=== PATIENT | male | born 1960 | race Caucasian/White ===

== ENCOUNTER 2017-01-27 19:23 | Emergency (ER) | payer MEDICAID ==
[2017-01-27 20:03] VITALS: BMI 29.7
[2017-01-27 20:06] VITALS: BP 122/72; PULSE 82; RESP 19; TEMP 98.2; O2SAT 96
[2017-01-27] MEDS ORDERED: Lidocaine 5% Patch TD STA (20:41)
--- NOTE | 2017-01-27 20:45 | ED PDOC ---
Arrival/HPI - General Chief Complaint: Back Pain Time Seen by Provider: 01/27/17 20:41 Historian: Patient - History of Present Illness Narrative History of Present Illness (Text): 01/27/17 20:42 56 y/o male, no significant pmh, nkda, c/o rt. lower back pain s/p lifting heavy object with no fall or trauma. Aching pain, pain from the rt. lower back to the rt. thigh region, no numbness or tingling, no urinary or bowel incontinence or retention, no rash, no urinary symptoms, no dizziness, no other medical or psychological complaints. Past Medical History - Provider Review Nursing Documentation Reviewed: Yes - Infectious Disease Hx of Infectious Diseases: None - Psychiatric Hx Substance Use: No - Anesthesia Hx Anesthesia: No Family/Social History - Physician Review Nursing Documentation Reviewed: Yes Family/Social History: Unknown Family HX Smoking Status: Heavy Smoker > 10 Cigarettes Daily Hx Alcohol Use: No Hx Substance Use: No Allergies/Home Meds Allergies/Adverse Reactions: Allergies No Known Allergies Allergy (Verified 01/27/17 20:03) Home Medications: Home Meds Medication Instructions Recorded Confirmed DULoxetine [Cymbalta] 60 mg PO DAILY 01/27/17 01/27/17 Review of Systems - Review of Systems Constitutional: absent: Fatigue, Fevers Eyes: absent: Vision Changes ENT: absent: Hearing Changes Respiratory: absent: SOB, Cough Cardiovascular: absent: Chest Pain Gastrointestinal: absent: Abdominal Pain, Nausea, Vomiting Genitourinary Male: absent: Dysuria, Frequency, Hematuria, Urinary Output Changes Musculoskeletal: Back Pain. absent: Arthralgias, Neck Pain, Joint Swelling, Myalgias Skin: absent: Rash, Pruritis, Skin Lesions, Laceration, Abscess, Ulcer, Cellulitis Neurological: absent: Headache, Dizziness Physical Exam Vital Signs Reviewed: Yes Vital Signs Temp Pulse Resp BP Pulse Ox 01/27/17 20:05 98.2 F 82 19 122/72 96 Temperature: Afebrile Blood Pressure: Normal Pulse: Regular Respiratory Rate: Normal Appearance: Positive for: Well-Appearing, Non-Toxic, Comfortable Pain Distress: Moderate Mental Status: Positive for: Alert and Oriented X 3 - Systems Exam Head: Present: Atraumatic, Normocephalic Pupils: Present: PERRL Extroacular Muscles: Present: EOMI Conjunctiva: Present: Normal Mouth: Present: Moist Mucous Membranes Neck: Present: Normal Range of Motion Respiratory/Chest: Present: Clear to Auscultation, Good Air Exchange. No: Respiratory Distress, Accessory Muscle Use Cardiovascular: Present: Regular Rate and Rhythm, Normal S1, S2. No: Murmurs Abdomen: Present: Normal Bowel Sounds. No: Tenderness, Distention, Peritoneal Signs Back: Present: Normal Inspection, Paraspinal Tenderness, Other (LS spine: +ttp on the rt. paraspinal muscle region with no midline tenderness or step off, FROM without limitation, no rash, sensation intact, motor 5/5, no saddling gait. ). No: CVA Tenderness, Midline Tenderness, Pain with Leg Raise, Decubitus Ulcer Upper Extremity: Present: Normal Inspection. No: Cyanosis, Edema Lower Extremity: Present: Normal Inspection, Capillary Refill < 2 s. No: Edema Neurological: Present: GCS=15, Speech Normal, Motor Func Grossly Intact, Gait Normal, Memory Normal Skin: Present: Warm, Dry, Normal Color. No: Rashes Psychiatric: Present: Alert, Oriented x 3, Normal Insight, Normal Concentration Medical Decision Making ED Course and Treatment: 01/27/17 20:44 -toradol IM and lidoderm -Discharge home with motrin, flexeril, lidoderm patch, heat compression, follow up with your own pmd within 2 days, return to the ER for any new or worsening signs or symptoms. - PA / CH[employer]ING [employer] OPERATOR / Resident Statement MD/DO has reviewed & agrees with the documentation as recorded. Disposition/Present on Arrival - Present on Arrival Any Indicators Present on Arrival: No History of DVT/PE: No History of Uncontrolled Diabetes: No Urinary Catheter: No History of Decub. Ulcer: No History Surgical Site Infection Following: None - Disposition Have Diagnosis and Disposition been Completed?: Yes Diagnosis: Back pain, Back strain Disposition: HOME/ ROUTINE Disposition Time: 20:45 Patient Plan: Discharge Condition: GOOD Additional Instructions: Discharge home with motrin, flexeril, lidoderm patch, heat compression, follow up with your own pmd within 2 days, return to the ER for any new or worsening signs or symptoms. Prescriptions: Cyclobenzaprine [Cyclobenzaprine HCl] 10 mg PO TID PRN #21 tab PRN Reason: Other Ibuprofen [Motrin] 600 mg PO QID PRN #24 tab PRN Reason: Other Lidocaine 5% [Lidoderm] 1 patch TOP DAILY PRN #10 patch PRN Reason: Other Referrals: Mariangel Jaquez MD [Primary Care Provider] - Follow up with primary Forms: WORK NOTE
== END 2017-01-27 21:00 | disposition home or self-care (01) ==
LOC: ED 19:23
DX: S39.012A Strain of muscle, fascia and tendon of lower back, initial encounter (principal); X50.0XXA Overexertion from strenuous movement or load, initial encounter; M54.5 Low back pain
CPT/HCPCS: 96372; 99283; J1885

== ENCOUNTER 2017-05-23 21:17 | Emergency (ER) | payer MEDICAID ==
[2017-05-23 21:36] VITALS: TEMP 98.2
[2017-05-23 21:43] VITALS: BMI 25.0
--- NOTE | 2017-05-23 21:46 | ED PDOC ---
Arrival/HPI - General Time Seen by Provider: 05/23/17 21:26 Historian: Patient - History of Present Illness Narrative History of Present Illness (Text): 05/23/17 21:46 Ana Maria Dutton is a 56 year old male who presents to the emergency department complaining of lower back pain radiating to his lower abdomen for the past 2 weeks. Patient states pain is worse when sitting or bending, but not present when lying down. Patient denies fever, chills, chest pain, shortness of breath, nausea, vomiting, diarrhea, neck pain, headache, dizziness, or any other complaints. Time/Duration: < month (2 weeks) Symptom Onset: Gradual Symptom Course: Unchanged Activities at Onset: Light Context: Home Past Medical History - Provider Review Nursing Documentation Reviewed: Yes - Infectious Disease Hx of Infectious Diseases: None - Psychiatric Hx Substance Use: No - Anesthesia Hx Anesthesia: No Family/Social History - Physician Review Nursing Documentation Reviewed: Yes Family/Social History: Unknown Family HX Smoking Status: Heavy Smoker > 10 Cigarettes Daily Hx Alcohol Use: No Hx Substance Use: No Allergies/Home Meds Allergies/Adverse Reactions: Allergies No Known Allergies Allergy (Verified 05/23/17 21:42) Home Medications: Home Meds Medication Instructions Recorded Confirmed DULoxetine [Cymbalta] 60 mg PO DAILY 01/27/17 05/23/17 Alprazolam [Xanax] 0.25 mg PO DAILY 05/23/17 05/23/17 Review of Systems - Physician Review All systems were reviewed & negative as marked: Yes - Review of Systems Constitutional: Normal. absent: Fevers Eyes: Normal ENT: Normal Respiratory: Normal. absent: SOB, Cough Cardiovascular: Normal. absent: Chest Pain Gastrointestinal: Abdominal Pain Genitourinary Male: Normal. absent: Dysuria, Frequency, Hematuria, Urinary Output Changes Musculoskeletal: Back Pain. absent: Neck Pain Skin: Normal Neurological: Normal. absent: Headache, Dizziness Endocrine: Normal Hemo/Lymphatic: Normal Psychiatric: Normal Physical Exam Vital Signs Reviewed: Yes Vital Signs Temp Pulse Resp BP Pulse Ox 05/24/17 01:14 18 99 05/23/17 23:55 79 19 99 05/23/17 21:44 75 17 126/77 98 05/23/17 21:35 98.2 F 75 18 126/75 100 Temperature: Afebrile Blood Pressure: Normal Pulse: Regular Respiratory Rate: Normal Appearance: Positive for: Well-Appearing, Non-Toxic, Comfortable Pain Distress: None Mental Status: Positive for: Alert and Oriented X 3 - Systems Exam Head: Present: Atraumatic, Normocephalic Pupils: Present: PERRL Extroacular Muscles: Present: EOMI Conjunctiva: Present: Normal Mouth: Present: Moist Mucous Membranes Neck: Present: Normal Range of Motion Respiratory/Chest: Present: Clear to Auscultation, Good Air Exchange. No: Respiratory Distress, Accessory Muscle Use Cardiovascular: Present: Regular Rate and Rhythm, Normal S1, S2. No: Murmurs Abdomen: Present: Normal Bowel Sounds. No: Tenderness, Distention, Peritoneal Signs Back: Present: Normal Inspection Upper Extremity: Present: Normal Inspection. No: Cyanosis, Edema Lower Extremity: Present: Normal Inspection. No: Edema Neurological: Present: GCS=15, CN II-XII Intact, Speech Normal Skin: Present: Warm, Dry, Normal Color. No: Rashes Psychiatric: Present: Alert, Oriented x 3, Normal Insight, Normal Concentration Medical Decision Making ED Course and Treatment: 05/23/17 21:46 Impression: 56 year old male complaining of lower back pain radiating to abdomen for 2 weeks. Plan: -- CT Abdomen and Pelvis w/o contrast -- EKG -- Labs, cardiac enzymes, lipase, amylase -- UA -- Reassess and disposition Prior Visits: Notes and results from previous visits were reviewed. On 01/27/2017, pt was seen in the Emergency department for right lower back pain radiating to right thigh. Pt was d/c home. Progress Notes: Reviewed EKG, NSR at [address]-segment elevations or depressions, no T-wave inversions, normal intervals. 05/24/17 00:35 Reviewed radiology, CT Abdomen and Pelvis shows: Lower thorax: Bibasilar atelectasis. ABDOMEN: Liver: No acute findings Gallbladder and bile ducts: The gallbladder is decompressed, without calcified stones. No intraextrahepatic biliary ductal dilation. Pancreas: Limited evaluation secondary to the lack of intravenous contrast. Spleen: No acute findings. Adrenals: No acute findings. Kidneys and ureters: No obstructing stones. No hydronephrosis. PELVIS: Bladder: No acute findings. Reproductive: No acute findings. Appendix: The appendix is of normal caliber (series 2, image 117). ABDOMEN and PELVIS: Stomach and bowel: Mural thickening within multiple loops of nondilated small bowel, to the left of midline within the lower abdomen without surrounding inflammation or fluid to confirm an acute enteritis. Peritoneum: No acute findings. Lymph nodes: Limited evaluation without intravenous contrast. Vasculature: No aortic aneurysm. Calcified atherosclerotic disease. Bones: No acute fracture. IMPRESSION: No obstructive uropathy. Small bowel mural thickening without surrounding inflammation or fluid to confirm an acute enteritis 05/24/17 01:14 On reevaluation the patient feels better and is in no acute distress. I have discussed the results and plan with the patient, who expresses understanding. Patient given the opportunity to ask question, all questions were answered and there is agreement with the plan to discharge the patient home. Patient is stable for discharge. Patient was instructed to follow up with physician/clinic in 1-2 days or return if symptoms persist/worsen or new concerning symptoms arise. - Lab Interpretations Lab Results: 05/23/17 22:18 05/23/17 22:18 Lab Results 05/23/17 22:50: Urine Color Yellow, Urine Appearance Clear, Urine pH 6.0, Ur Specific [place] 1.020, Urine Protein Negative, Urine Glucose (UA) Negative, Urine Ketones Negative, Urine Blood Negative, Urine Nitrate Negative, Urine Bilirubin Negative, Urine Urobilinogen 0.2, Ur Leukocyte Esterase Negative 05/23/17 22:18: Sodium 141, Potassium 3.7, Chloride 108 H, Carbon Dioxide 27, Anion Gap 10, BUN 18, Creatinine 0.7 L, Est GFR ( Amer) > 60, Est GFR ( Non-Af Amer) > 60, Random Glucose 129 H, Calcium 9.0, Total Bilirubin 0.4, AST 16 L, ALT 32, Alkaline Phosphatase 68, Lactate Dehydrogenase 357, Total Creatine Kinase 126, Troponin I < 0.01, Total Protein 6.8, Albumin 3.9, Globulin 3.0, Albumin/Globulin Ratio 1.3, Amylase 77, Lipase 87 05/23/17 22:18: PT 11.9, INR 1.09 H, APTT 32.1 05/23/17 22:18: WBC 6.6, RBC 4.24, Hgb 12.5 L, Hct 37.3 L, MCV 88.0, MCH 29.5, MCHC 33.5, RDW 14.7 H, Plt Count 208, MPV 10.0, Gran % 58.6, Lymph % (Auto) 33.5 , [place] % (Auto) 4.2, Eos % (Auto) 3.5, Baso % (Auto) 0.2, Gran # 3.88, Lymph # 2.2, [place] # 0.3, Eos # 0.2, Baso # 0.01 - RAD Interpretation Radiology Orders: 05/23/17 21:47 ABD & PELVIS W/O PO OR IV CONT [CT] Stat - EKG Interpretation Interpreted by ED Physician: Yes Type: 12 lead EKG - Medication Orders Current Medication Orders: Discontinued Medications Metronidazole (Flagyl) 500 mg PO STAT STA PRN Reason: Protocol Stop: 05/24/17 01:04 Last Admin: 05/24/17 01:14 Dose: 500 mg - Scribe Statement The provider has reviewed the documentation as recorded by the Tanjaibrandy Lockhart All medical record entries made by the Tanjaibrandy were at my direction and personally dictated by me. I have reviewed the chart and agree that the record accurately reflects my personal performance of the history, physical exam, medical decision making, and the department course for this patient. I have also personally directed, reviewed, and agree with the discharge instructions and disposition. Disposition/Present on Arrival - Present on Arrival Any Indicators Present on Arrival: No History of DVT/PE: No History of Uncontrolled Diabetes: No Urinary Catheter: No History Surgical Site Infection Following: None - Disposition Have Diagnosis and Disposition been Completed?: Yes Diagnosis: Colitis Disposition: HOME/ ROUTINE Disposition Time: 01:15 Condition: GOOD Discharge Instructions (ExitCare): Colitis (ED) Prescriptions: Metronidazole [Flagyl] 500 mg PO TID #15 tab Forms: [employer] ([place])
[2017-05-23 21:48] VITALS: BP 126/77
[2017-05-23 22:29] LABS: BASO # 0.01 K/mm3 (0.0-2.0); BASO % 0.2 % (0.0-3.0); EOS # 0.2 (0.0-0.7); EOS % 3.5 % (1.5-5.0); GRAN # 3.88 (1.4-6.5); GRAN % 58.6 % (50.0-68.0); HEMATOCRIT 37.3 % (42.0-52.0); LYMPH # 2.2 (1.2-3.4); LYMPH % 33.5 % (22.0-35.0); MEAN CORPUSCULAR HEMOGLOBIN 29.5 pg (25.0-35.0); MEAN CORPUSCULAR HGB CONC 33.5 g/dl (31.0-37.0); MONO # 0.3 (0.1-0.6); MONO % 4.2 % (1.0-6.0); RED CELL DISTRIBUTION WIDTH 14.7 % (11.5-14.5); WHITE BLOOD COUNT 6.6 10^3/ul (4.5-11.0)
[2017-05-23 22:34] LABS: ALB/GLOB RATIO 1.3 (1.1-1.8); ALKALINE PHOSPHATASE 68 U/L (38-126); ALT/SGPT 32 U/L (7-56); AMYLASE 77 U/L (35-125); AST/SGOT 16 U/L (17-59); BILIRUBIN,TOTAL 0.4 mg/dL (0.2-1.3); BLOOD UREA NITROGEN 18 mg/dL (7-21); CARBON DIOXIDE 27 mmol/L (21-33); CHLORIDE 108 mmol/L (98-107); GFR AFRICAN-AMERICAN > 60; GLUCOSE,RANDOM 129 mg/dL (70-110); LIPASE 87 U/L (23-300); POTASSIUM 3.7 mmol/L (3.6-5.0); SODIUM 141 mmol/L (132-148); TOTAL PROTEIN 6.8 g/dL (5.8-8.3)
[2017-05-23 22:35] LABS: INR 1.09 (0.93-1.08); PARTIAL THROMBOPLASTIN TIME 32.1 Seconds (25.1-36.5)
[2017-05-23 22:48] LABS: TROPONIN I < 0.01 ng/mL
[2017-05-23 23:20] LABS: URINE BILIRUBIN NEGATIVE (NEGATIVE); URINE BLOOD NEGATIVE (NEGATIVE); URINE GLUCOSE (UA) NEGATIVE (NEGATIVE); URINE KETONE NEGATIVE (NEGATIVE); URINE LEUKOCYTE ESTERASE NEGATIVE Leu/uL (NEGATIVE); URINE PROTEIN NEGATIVE mg/dL (<30 mg/dL); URINE UROBILINOGEN 0.2 E.U./dL (<1 E.U./dL)
[2017-05-23 23:24] LABS: URINE APPEARANCE CLEAR (CLEAR); URINE COLOR YELLOW (YELLOW)
[2017-05-23 23:56] VITALS: PULSE 79; O2SAT 99
--- NOTE | 2017-05-24 00:29 | CT ---
EXAM: CT Abdomen and Pelvis Without Intravenous Contrast CLINICAL HISTORY: 56 years old, male; Pain; Abdominal pain; Acute; Additional info: Lower abd pain TECHNIQUE: Axial computed tomography images of the abdomen and pelvis without intravenous contrast. All CT scans at this facility use one or more dose reduction techniques, viz.: automated exposure control; ma/kV adjustment per patient size (including targeted exams where dose is matched to indication; i.e. head); or iterative reconstruction technique. COMPARISON: No relevant prior studies available. FINDINGS: Lower thorax: Bibasilar atelectasis. ABDOMEN: Liver: No acute findings Gallbladder and bile ducts: The gallbladder is decompressed, without calcified stones. No intra-extrahepatic biliary ductal dilation. Pancreas: Limited evaluation secondary to the lack of intravenous contrast. Spleen: No acute findings. Adrenals: No acute findings. Kidneys and ureters: No obstructing stones. No hydronephrosis. PELVIS: Bladder: No acute findings. Reproductive: No acute findings. Appendix: The appendix is of normal caliber (series 2, image 117). ABDOMEN and PELVIS: Stomach and bowel: Mural thickening within multiple loops of nondilated small bowel, to the left of midline within the lower abdomen without surrounding inflammation or fluid to confirm an acute enteritis. Peritoneum: No acute findings. Lymph nodes: Limited evaluation without intravenous contrast. Vasculature: No aortic aneurysm. Calcified atherosclerotic disease. Bones: No acute fracture. IMPRESSION: No obstructive uropathy. Small bowel mural thickening without surrounding inflammation or fluid to confirm an acute enteritis.
[2017-05-24 01:14] VITALS: RESP 18
--- NOTE | 2017-05-24 14:37 | CARD ---
APPROVED REPORT EKG Measurement Heart [id number] <Conclusion> Normal sinus rhythm Normal ECG
== END 2017-05-24 01:15 | disposition home or self-care (01) ==
LOC: ED 21:17
DX: K52.9 Noninfective gastroenteritis and colitis, unspecified (principal)